=== PATIENT | female | born 1990 | race Caucasian/White ===

== ENCOUNTER 2017-02-16 19:22 | Emergency (ER) | payer BC ==
[~2017-02-16 19:22] MED LIST: CLON.5 PO; LEVS0.123 PO; ZOFR4TAB3 SL
[2017-02-16 19:23] VITALS: BP 132/80; PULSE 106; RESP 16; TEMP 97.9; O2SAT 99
[2017-02-16 22:28] VITALS: BP 111/71; PULSE 65; RESP 18; O2SAT 98
--- NOTE | 2017-02-16 22:34 | PD ---
HPI Chief Complaint: Psychiatric Symptoms Time Seen by Provider: 22:25 Travel History International Travel<30 days: No Contact w/Intl Traveler<30days: No Traveled to known affect area: No History of Present Illness HPI The patient is a 26 year old female who presents to the [facility] emergency department with a history of mood instability that began in November 2016. She reports that initially she was diagnosed with generalized anxiety disorder. She reports that in December she was started on Klonopin, however she believes at this point it is making her worse. She reports that over the last week she has been having suicidal ideations. She reports that she feels so depressed and hopeless that she feels like she has nowhere to turn. She reports that she has been seeing a psychiatrist as an outpatient on one occasion. She reports that her primary care physician saw her earlier today and referred her directly to the emergency department. She reports that she's been experiencing midepigastric abdominal pain. She did go to the emergency department on February 13 regarding the and have blood work done as well as a CT scan of the abdomen and pelvis that was negative. The patient again went to the emergency department and had laboratory studies done today that showed no acute abnormality. The patient reports that she has no appetite. She reports that she has only been drinking water and Pedialyte. The patient reports having a family history of bipolar disorder and anxiety disorder. She reports that she has had loose stools 1-2 times per week over the last month. She denies having any blood in her stool or mucus in her stool. She reports that she's lost 40 pounds in the last month. She is unsure whether anyone has checked her thyroid function panel. On review systems otherwise, she denies having any known recent fevers, cough, congestion, neck pain, chest pain, shortness of breath, abdominal pain, vomiting, acid reflux or heartburn, urinary symptoms, or neurologic symptoms. FOR[facility]LY [facility] Past Medical History Narrative Medical The patient's past medical history is significant for generalized anxiety disorder Anxiety: Yes Seizures: Yes Influenza Vaccination: No ?: Unknown LMP: 01/09/17 Past Surgical History Surgical History: No Previous Surgery Social History Alcohol Use: No Tobacco Use: No Substance Use: No Allergies-Medications (Allergen,Severity, Reaction): Coded Allergies: No Known Allergies (Unverified , 1/8/18) Reported Meds & Prescriptions Reported Meds & Active Scripts Active Levsin (Hyoscyamine Sulfate) 0.125 Mg Tab 0.125 Mg PO Q6H Zofran Odt (Ondansetron Odt) 4 Mg Tab 4 Mg SL Q8HR PRN Reported Klonopin (Clonazepam) 0.5 Mg Tab 0.5 Mg PO BID Review of Systems Except as stated in HPI: all other systems reviewed are Neg General / Constitutional: No: Fever Eyes: No: Visual changes HENT: No: Headaches Cardiovascular: No: Chest Pain or Discomfort Respiratory: No: Shortness of Breath Gastrointestinal: Positive: Nausea, Loss of Appetite, No: Vomiting, Diarrhea, Abdominal Pain, Indigestion Genitourinary: No: Dysuria Musculoskeletal: No: Pain Skin: No Rash Neurologic: No: Weakness, Focal Abnormalities, Change in Mentation, Slurred Speech, Sensory Disturbance Psychiatric: Positive: Anxiety, Depression, Suicidal Ideations, Mood Disorder, No: Homicidal Ideation Endocrine: No: Polydipsia Hematologic/Lymphatic: No: Easy Bruising Physical Exam Narrative General: The patient is a well-developed well-nourished female in no acute distress. Head and Neck exam: Head is normocephalic atraumatic. Eyes: EOMI, pupils are equal round and reactive to light. Nose: Midline septum with pink mucous membranes Mouth: Dentition unremarkable. Moist mucus membranes. Posterior oropharynx is not erythematous. No tonsillar hypertrophy. Uvula midline. Airway patent. Neck: No palpable lymphadenopathy. No nuchal rigidity. No thyromegaly. Cardiovascular: Regular rate and rhythm without murmurs, gallops, or rubs. Lungs: Clear to auscultation bilaterally. No wheezes, rhonchi, or rales. Abdomen: Soft, with with midepigastric abdominal discomfort on palpation. No other tenderness on palpation of the other quadrants of the abdomen. No guarding, rebound, or rigidity. Normal bowel sounds are audible. No tenderness on palpation of McBurney's point. Extremities: No clubbing, cyanosis, or edema. 2+ pulses in all 4 extremities. No calf tenderness on palpation. Back: No spinous process tenderness to palpation. No costovertebral angle tenderness to palpation. Neurologic Exam: Grossly nonfocal. Skin Exam: No rash noted. Intact skin that is warm and dry. Data Data Last Documented VS Vital Signs Date Time Temp Pulse Resp B/P (MAP) Pulse Ox O2 Delivery O2 Flow Rate FiO2 02/16/17 22:28 65 18 111/71 (84) 98 Room Air 02/16/17 19:23 97.9 Orders Orders Psych Screen (02/16/17 20:03) Thyroid Stimulating Hormone (02/16/17 22:33) Iv Access Insert/Monitor (02/16/17 22:33) Ecg Monitoring (02/16/17 22:33) Oximetry (02/16/17 22:33) Ed Urine Pregnancytest Poc (02/16/17 22:33) Labs Laboratory Tests Test 02/16/17 23:40 Thyroid Stimulating Hormone 3rd Gen 2.760 uIU/ML MDM Medical Decision Making Medical Screen Exam Complete: Yes Emergency Medical Condition: Yes Medical Record Reviewed: Yes Differential Diagnosis Generalized anxiety disorder, versus bipolar disorder, versus depression with suicidal ideations, versus hyperthyroid disorder Narrative Course During the course of the patients emergency department visit, the patients history, examination, and differential diagnosis were reviewed with the patient. The patient was placed on a air sampling and monitoring with oximetry and frequent blood pressure monitoring. The patient had IV access obtained and blood work sent for analysis. The patient's electronic medical record was reviewed. The patient was seen over at the [facility] emergency department and had laboratory studies done prior to arrival. The patient was sent to this facility for evaluation by the psychiatric screener after she was medically cleared. The patients laboratory studies were reviewed and remarkable for laboratory studies done in [place] earlier today with a white count of 13.7, hemoglobin 15.2, platelets 312 with neutrophils 77.9. CMP is remarkable for a GFR 68, glucose of 56, total bilirubin 1.6, TSH 2.76, urinalysis shows 40 ketones trace occult blood, small leukocyte esterase, squamous epithelial cells 6-8, culture not indicated. Urine drug screen is positive for cannabinoids, alcohol level less than 3. The patient has been medically cleared for evaluation by the psychiatric screener due to depression with suicidal ideations. Diagnosis Primary Impression: Depression with suicidal ideation Additional Impression: Abdominal pain Qualified Codes: R10.13 - Epigastric pain Karla Everett MD Feb 16, 2017 22:34
[2017-02-17 03:38] VITALS: BP 126/91; PULSE 85; RESP 16; TEMP 98.2; O2SAT 100
[2017-02-17 07:02] VITALS: BP 122/62; PULSE 60; RESP 18; TEMP 98.2; O2SAT 99
[2017-02-17 10:10] VITALS: BP 107/58; PULSE 68; RESP 18; O2SAT 98
--- NOTE | 2017-02-17 16:33 | PD ---
History of Present Illness Chief Complaint: Psychiatric Symptoms Time Seen by Provider: 15:45 Travel History International Travel<30 Days: No Contact w/Intl Traveler<30days: No Known affected area: No Legal Status Legal Status: Voluntary History of Present Illness: History of Present Illness The patient is a 26 year old female with reported history of anxiety who presents to the [facility] emergency department on a voluntary basis for psychiatric evaluation. She reports that initially she was diagnosed with generalized anxiety disorder. She reports that in December she was started on Klonopin, however she believes at this point it is not working to manage her anxiety. Patient reports compliance with prescribed medication. She reports that her primary care physician saw her earlier today and referred her directly to the emergency department. She reports that she's been experiencing midepigastric abdominal pain for the past several weeks. Electronic medical record is reviewed. No previous contact with [facility] psychiatry Department. Current toxicology is positive for cannabinoids. The patient was monitored in secure environment. There was no behavioral concerns. The patient reports that she slept and that she feels better. Patient is seen. Alert, oriented female who is engaging and cooperative. Her speech is clear and logical. Affect is congruent to mood. Mood is anxious. There is no evidence of any psychosis. Denies any hallucinations, delusions or paranoia. No jorge or hypomania. There is no suicidal ideation, intent or plan. There is no homicidal ideation intent or plan. Fund of knowledge is adequate. Attention and concentration are adequate and not impaired. Patient is wanting to seek counseling services to help her manage and understand her anxiety. She eventually would like to stop taking any medication if it is possible. PFSH Past Medical History Anxiety: Yes Seizures: Yes Influenza Vaccination: No ?: Unknown LMP: 01/09/17 Past Surgical History Surgical History: No Previous Surgery Psychiatric History Psychiatric History Hx Psychiatric Treatment: HX OF GENERALIZED ANXIETY D/O WITH PANIC FEATURES no history of previous hospitalizations. No history of suicidal attempts. Began seen a psychiatric provider approximately a month ago and was started on Klonopin 0.5 mg twice a day. History of Inpatient Treatment: No Guns or firearms in home: No Social History for 2 months. Lives with her and [id number] and 4-year-old children. She is a [id number] mom. Hx Alcohol Use: No Hx Tobacco Use: No Hx Substance Use: Yes Substance Use Type: Marijuana Hx of Substance Use Treatment: No Family Psychiatric History Mother with anxiety and depression. Father with anxiety, depression possible bipolar disorder. Allergies-Medications (Allergen,Severity, Reaction): Coded Allergies: No Known Allergies (Unverified , 02/16/17) Reported Meds & Prescriptions Reported Meds & Active Scripts Active Reported Klonopin (Clonazepam) 0.5 Mg Tab 0.5 Mg PO BID Review of Systems Gastrointestinal: COMPLAINS OF: Abdominal pain, Diarrhea Mental Status Examination Appearance: Appropriate (patient is dressed in [facility]. Maintaining basic hygiene and grooming) Consciousness: Alert Orientation: x4 Motor Activity: Normal gait Speech: Unremarkable Language: Adequate Fund of Knowledge: Adequate Attention and Concentration: Adequate Memory: Unremarkable Mood: Appropriate, Anxious Affect: Appropriate Thought Process & Associations: Intact, Logical, Goal directed Thought Content: Appropriate Hallucination Type: None Delusion Type: None Suicidal Ideation: No Suicidal Plan: No Suicidal Intention: No Homicidal Ideation: No Homicidal Plan: No Homicidal Intention: No Insight: Adequate Judgment: Adequate MDM Medical Decision Making Medical Record Reviewed: Yes Assessment/Plan 26-year-old female who presents to the emergency department on a voluntary basis upon the recommendation of her primary care physician. The patient has been experiencing gastrointestinal symptoms for the past several weeks with little to no relief. Today while she was at her doctor's office she was feeling more anxious and overwhelmed with her symptoms. The patient does not present any psychosis, no jorge, no suicidal or homicidal ideation intent or plan. The patient is future oriented with adequate protective factors in place. She is looking for referrals for psychotherapeutic counseling services as well as looking for an intensive outpatient treatment. She wants to be able to learn about anxiety and begin to manage the anxiety without medication. Patient does not meet criteria for inpatient psychiatric hospitalization. She is provided psychoeducation. She is provided outpatient referral sources. She is encouraged to follow-up with her psychiatric provider. Patient at this time is psychiatrically clear for discharge. Orders Orders Psych Screen (02/16/17 20:03) Thyroid Stimulating Hormone (02/16/17 22:33) Iv Access Insert/Monitor (02/16/17 22:33) Ecg Monitoring (02/16/17 22:33) Oximetry (02/16/17 22:33) Ed Urine Pregnancytest Poc (02/16/17 22:33) Bedside Glucose XAVIER.CSUGAR (02/17/17 01:38) Diet Regular Basic (02/17/17 Breakfast) Diet Regular Basic (02/17/17 Lunch) Results Vital Signs Date Time Temp Pulse Resp B/P (MAP) Pulse Ox O2 Delivery O2 Flow Rate FiO2 02/17/17 10:10 68 18 107/58 (74) 98 02/17/17 07:02 98.2 60 18 122/62 (82) 99 Room Air 02/17/17 03:38 98.2 85 16 126/91 (103) 100 Room Air 02/17/17 02:59 02/16/17 22:28 65 18 111/71 (84) 98 Room Air 02/16/17 19:23 97.9 106 16 132/80 (97) 99 Room Air Laboratory Tests Test 02/16/17 23:40 Thyroid Stimulating Hormone 3rd Gen 2.760 Diagnosis Primary Impression: Generalized anxiety disorder Psychiatrically Cleared: Yes Med/ Other Pt Specific Info: No Change to Meds Disposition: 01 DISCHARGE HOME Condition: Stable Luz Maria Ballesteros Feb 17, 2017 16:33
--- NOTE | 2017-02-17 17:07 | PD ---
Physical Exam Date Seen by Provider: Feb 17, 2017 Time Seen by Provider: 17:08 Narrative 26-year-old female presents our facility for involuntary psychiatric examination. Patient was cleared medically and then cleared psychiatrically. Patient is ready for discharge at this time. I was asked to disposition and discharge the patient. Data Data Last Documented VS Vital Signs Date Time Temp Pulse Resp B/P (MAP) Pulse Ox O2 Delivery O2 Flow Rate FiO2 02/17/17 17:15 02/17/17 10:10 68 18 98 02/17/17 07:02 98.2 Room Air Orders Orders Psych Screen (02/16/17 20:03) Thyroid Stimulating Hormone (02/16/17 22:33) Iv Access Insert/Monitor (02/16/17 22:33) Ecg Monitoring (02/16/17 22:33) Oximetry (02/16/17 22:33) Ed Urine Pregnancytest Poc (02/16/17 22:33) Bedside Glucose XAVIER.CSUGAR (02/17/17 01:38) Diet Regular Basic (02/17/17 Breakfast) Diet Regular Basic (02/17/17 Lunch) Ed Discharge Order (02/17/17 17:08) Labs Laboratory Tests Test 02/16/17 23:40 Thyroid Stimulating Hormone 3rd Gen 2.760 uIU/ML MDM Supervised Visit with CANDIDO: Yes Differential Diagnosis Depression versus suicidal ideation versus anxiety versus adjustment disorder versus mood disorder versus bipolar disorder versus schizophrenia versus paranoid disorder versus psychosis versus substance abuse versus alcohol abuse versus alcohol induced psychosis versus homicidality addition versus cutting versus personality disorder Narrative Course 26-year-old female presents our facility for involuntary psychiatric examination. Patient was cleared medically and then cleared psychiatrically. Patient is ready for discharge at this time. I was asked to disposition and discharge the patient. Patient will be discharged home at this time. Diagnosis Primary Impression: Generalized anxiety disorder Disposition: 01 DISCHARGE HOME Condition: Stable Jocelynn Perez [facility] Feb 17, 2017 17:07
== END 2017-02-17 17:36 | disposition home or self-care (01) ==
LOC: NEPC 19:22 → NEPJ 02-17 17:36
DX: F41.1 Generalized anxiety disorder (principal); R45.851 Suicidal ideations; R10.13 Epigastric pain; R56.9 Unspecified convulsions; F12.90 Cannabis use, unspecified, uncomplicated; Z79.899 Other long term (current) drug therapy
CPT/HCPCS: 80053; 80307; 84443; 84703; 85025; 99284